=== PATIENT | male | born 1985 | race African-American/Black ===

== ENCOUNTER 2017-11-30 12:05 | Emergency (ER) | payer BC, SELFPAY ==
[2017-11-30] MEDS ORDERED: Adacel (T-DAP) 0.5 ML VIAL ONE (12:12)
[2017-11-30] MEDS ORDERED: Bacitracin Zinc 1 Packet ONE (13:15)
== END 2017-11-30 13:30 | disposition home or self-care (01) ==
LOC: ERS 12:05
DX: S50.12XA Contusion of left forearm, initial encounter (principal); S60.512A Abrasion of left hand, initial encounter; S60.511A Abrasion of right hand, initial encounter; F41.9 Anxiety disorder, unspecified; V43.52XA Car driver injured in collision with other type car in traffic accident, initial encounter
CPT/HCPCS: 90471; 90715

== ENCOUNTER 2020-12-15 18:21 | Emergency (ER) | payer SELFPAY ==
[2020-12-15] MEDS ORDERED: Ketorolac Tromethamine 30 MG/ML VIAL ONE (19:29)
== END 2020-12-15 19:20 | disposition home or self-care (01) ==
LOC: ERS 18:21
DX: S46.912A Strain of unspecified muscle, fascia and tendon at shoulder and upper arm level, left arm, initial encounter (principal); V89.2XXA Person injured in unspecified motor-vehicle accident, traffic, initial encounter
CPT/HCPCS: J1885